=== PATIENT | male | born 1965 | race African-American/Black ===

== ENCOUNTER 2024-03-15 03:27 | Emergency (ER) | payer BC ==
[2024-03-15 04:18] LABS: Bilirubin Neg (Negative); Blood, Urine Negative (Negative); Glucose, Urine (Dipstick) Normal (Negative); Ketone, Urine Negative (Negative); Leukocyte Negative (Negative); Nitrite Negative (Negative); Protein, Urine (Dipstick) Negative (Neg-Trace); Urobilinogen Normal mg/dL (Less than 2)
[2024-03-15 04:21] LABS: Clarity Clear (Clear)
[2024-03-15 04:27] LABS: Bacteria/HPF Rare-Few HPF (None Seen); CAUTI Indications for Culture Pelvic or flank pain; RBC/HPF 0-3 HPF (0-3); Squamous Epithelial 0-3 HPF (0-3); WBC/HPF 0-3 HPF (0-3)
[2024-03-15 04:30] LABS: Urine Culture Reflex No No
== END 2024-03-15 04:37 | disposition home or self-care (01) ==
LOC: CSHERS 03:27
DX: R33.9 Retention of urine, unspecified (principal); I10 Essential (primary) hypertension; E66.9 Obesity, unspecified; Z79.899 Other long term (current) drug therapy
CPT/HCPCS: 81001; 99283